=== PATIENT | female | born 1955 | race Caucasian/White ===

== ENCOUNTER → 2016-12-16 | Outpatient (CLI) | payer BC | LOC: CT 12:58 | DX: F17.210 Nicotine dependence, cigarettes, uncomplicated (principal); R91.1 Solitary pulmonary nodule; J43.9 Emphysema, unspecified; J98.09 Other diseases of bronchus, not elsewhere classified; N28.1 Cyst of kidney, acquired | CPT/HCPCS: G0297 ==

== ENCOUNTER → 2020-12-17 | Outpatient (CLI) | payer MEDICARE | LOC: KOH-I 14:11 | DX: F17.210 Nicotine dependence, cigarettes, uncomplicated (principal); J43.9 Emphysema, unspecified; J92.9 Pleural plaque without asbestos; N28.9 Disorder of kidney and ureter, unspecified | CPT/HCPCS: 71271 ==

== ENCOUNTER → 2021-08-20 | Outpatient (CLI) | payer MEDICARE | LOC: KOH-I 12:15 | DX: R05.9 Cough, unspecified (principal) | CPT/HCPCS: 71046 ==

== ENCOUNTER → 2021-09-09 | Outpatient (CLI) | payer MEDICARE | LOC: ECHO 09:48 | DX: I11.9 Hypertensive heart disease without heart failure (principal); I07.1 Rheumatic tricuspid insufficiency | CPT/HCPCS: ECHO; 93306 ==

== ENCOUNTER 2022-03-24 16:41 | Emergency (ER) | payer MEDICARE ==
[2022-03-24 17:34] LABS: HEMOGLOBIN 13.9 gm/dl (12.3-15.3); RED BLOOD COUNT 4.04 M/UL (4.00-5.10); WHITE BLOOD COUNT 6.9 K/UL (4.5-11.0)
[2022-03-24 17:58] LABS: BUN/CREATININE RATIO 16 (0-10)
== END 2022-03-24 22:15 | disposition home or self-care (01) ==
LOC: ER1 16:41
PROVIDERS: Emergency Medicine
DX: I67.1 Cerebral aneurysm, nonruptured (principal); E78.5 Hyperlipidemia, unspecified; I10 Essential (primary) hypertension; K21.9 Gastro-esophageal reflux disease without esophagitis; F17.200 Nicotine dependence, unspecified, uncomplicated; Z85.828 Personal history of other malignant neoplasm of skin
CPT/HCPCS: 36415; 70496; 70498; 80053; 82550; 82553; 84484; 85025; 85610; 85730; 96374; 96375; 99284; J1200; J2930; Q9967

== ENCOUNTER → 2022-03-24 | Outpatient (CLI) | payer MEDICARE | LOC: KOH-I 09:49 | DX: G44.82 Headache associated with sexual activity (principal); N28.1 Cyst of kidney, acquired; F17.210 Nicotine dependence, cigarettes, uncomplicated; R91.1 Solitary pulmonary nodule; R93.89 Abnormal findings on diagnostic imaging of other specified body structures | CPT/HCPCS: 70450; 71271 ==

== ENCOUNTER → 2022-04-12 | Outpatient (CLI) | payer MEDICARE | LOC: LAB 11:19 | DX: Z20.822 Contact with and (suspected) exposure to COVID-19 (principal) | CPT/HCPCS: U0002 ==